=== PATIENT | male | born 1985 | race Caucasian/White ===

== ENCOUNTER → 2023-10-27 | Outpatient (CLI) | payer BC ==
--- NOTE | 2023-10-27 12:10 | XR ---
EXAMINATION TYPE: XR knee complete LT DATE OF EXAM: 10/27/2023 12:02 PM CLINICAL INDICATION:Male, 37 years old with history of [id number] LT KNEE PAIN; [facility] COMPARISON: None. TECHNIQUE: XR knee complete LT; examined in Frontal, lateral and oblique projections. FINDINGS: No evidence of any acute osseous pathology, soft tissue swelling, or joint effusion is no heydi. IMPRESSION: No acute osseous pathology.
== END | disposition home or self-care (01) ==
LOC: RADXRYALE 11:44
PROVIDERS: ATTEND Physician Assistant
DX: M25.562 Pain in left knee (principal)

== ENCOUNTER → 2023-11-16 | Outpatient (CLI) | payer BC ==
--- NOTE | 2023-11-22 04:08 | MR ---
EXAMINATION TYPE: MR knee LT wo con DATE OF EXAM: 11/16/2023 COMPARISON: Left knee x-ray October 27, 2023 HISTORY: Left knee pain for 2 weeks, no known injury TECHNIQUE: Multiplanar, multisequence images of the knee is performed without IV contrast. FINDINGS: MEDIAL MENISCUS: Abnormal signal posterior horn medial meniscus. LATERAL MENISCUS: Abnormal signal in the lateral meniscus most prominent in the anterior horn. Abnorm al oblique signal central body extends to articular surface. Abnormal signal inferior aspect posterio r horn extends to articular surface. CRUCIATE LIGAMENTS: The posterior cruciate ligament is intact and unremarkable. Increased signal in t he anterior cruciate ligament. COLLATERAL LIGAMENTS: The medial collateral ligament and lateral collateral ligament complex are inta ct and unremarkable. EXTENSOR MECHANISM: Visualized quadriceps and patellar tendons are intact. EFFUSION: No significant suprapatellar joint effusion. POPLITEAL CYST: No popliteal/keane cyst. TRICOMPARTMENT SPACES: Tricompartment joint spaces are preserved. No significant spurring. CARTILAGE: Tricompartmental articular cartilage is maintained. BONE MARROW SIGNAL: Some subchondral cystic change centrally is felt present. OTHER: No additional significant abnormality is appreciated. IMPRESSION: 1. Full-thickness tear in the posterior horn lateral meniscus and full-thickness vertical tear in the central body lateral meniscus. At least intrasubstance tear anterior horn lateral meniscus. 2. 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
== END | disposition home or self-care (01) ==
LOC: RADMRIMAIN 21:30
PROVIDERS: ATTEND Family Medicine
DX: S83.282A Other tear of lateral meniscus, current injury, left knee, initial encounter (principal)